=== PATIENT | female | born 1990 | race Caucasian/White ===

== ENCOUNTER 2018-12-14 18:10 | Emergency (ER) | payer OTHER ==
[2018-12-14 18:17] VITALS: BP 127/80; TEMP 97.9
[2018-12-14] MEDS ORDERED: SODIUM CHLORIDE 0.9% 1,000 ML IV STA (18:36)
[2018-12-14] MEDS ORDERED: diphenhydrAMINE 50 MG/ML 1 ML VIAL IM STA (18:37)
[2018-12-14] MEDS ORDERED: LORazepam 2 MG/ML INJ IM STA (18:37)
--- NOTE | 2018-12-14 18:46 | ED ---
Abdominal Pain HPI - General Chief Complaint: Abdominal Pain Stated Complaint: Constipation Time Seen by Provider: 12/14/18 18:20 Source: family Mode of arrival: ambulatory Limitations: no limitations, altered mental status - History of Present Illness Initial Comments: 28-year-old female patient who is severely mentally impaired presents to the emergency department today with parent for evaluation of constipation. She reports that she has not had a bowel movement in the last 2 weeks. Parent states that she has had decreased food and fluid intake, she is only able to get her to drink small sips of water. She denies any fevers or chills. States that she seems uncomfortable and keeps holding her buttocks. Parent states that she does have history of holding her stool. Patient denies any recent rash , fever, chills, shortness breath, vomiting, or diarrhea. - Related Data Home Medications Medication Instructions Recorded Confirmed Ciprofloxacin HCl [Cipro] 500 mg PO BID 12/14/18 12/14/18 Citric Magnesium 8 oz PO ONCE PRN 12/14/18 12/14/18 Glycerin Adult Suppository 1 each RECTAL ONCE PRN 12/14/18 12/14/18 l-Norgest/E.estradiol-E.estrad 1 tab PO DAILY 12/14/18 12/14/18 [Seasonique 0.15-0.03-0.01 Tab] risperiDONE [RisperDAL] 0.5 mg PO DAILY PRN 12/14/18 12/14/18 Allergies Allergy/AdvReac Type Severity Reaction Status Date / Time No Known Allergies Allergy Verified 12/14/18 18:30 Review of Systems ROS Statement: Those systems with pertinent positive or pertinent negative responses have been documented in the HPI. ROS Other: All systems not noted in ROS Statement are negative. Past Medical History Additional Past Medical History / Comment(s): SEVERELY MENTALLY IMPAIRED. History of Any Multi-Drug Resistant Organisms: None Reported Past Surgical History: No Surgical Hx Reported Past Psychological History: No Psychological Hx Reported Smoking Status: Never smoker Past Alcohol Use History: None Reported Past Drug Use History: None Reported General Exam Limitations: no limitations, altered mental status General appearance: alert, in no apparent distress, other (This is a well- developed, well-nourished adult female patient in no acute distress. Vital signs upon presentation are temperature 97.9F, pulse 137, respirations 18, blood pressure 127/80, pulse ox 97% on room air.) Eye exam: Present: normal appearance, PERRL, EOMI. Absent: scleral icterus, conjunctival injection, periorbital swelling ENT exam: Present: normal exam, normal oropharynx, mucous membranes moist Respiratory exam: Present: normal lung sounds bilaterally. Absent: respiratory distress, wheezes, rales, rhonchi, stridor Cardiovascular Exam: Present: regular rate, normal rhythm, normal heart sounds. Absent: systolic murmur, diastolic murmur, rubs, gallop, clicks Neurological exam: Present: alert, CN II-XII intact, other Psychiatric exam: Present: normal affect, normal mood Skin exam: Present: warm, dry, intact, normal color. Absent: rash Course Vital Signs 12/14/18 12/14/18 18:13 23:16 Temperature 97.9 F Pulse Rate 137 H 108 H Respiratory 18 20 Rate Blood Pressure 127/80 O2 Sat by Pulse 97 97 Oximetry Medical Decision Making - Medical Decision Making 28-year-old female patient presents to the emergency department today for evaluation of constipation. Patient is severely mentally impaired and is nonverbal. Mother reports it has been 2 weeks and she had a bowel movement. States that she occasionally holds her butt like it hurts. States she has also had decreased appetite. Physical exam is unremarkable. Abdomen is soft and nontender. KUB x-ray of the abdomen showed overall nonobstructive bowel gas pattern. Sedation was required to perform testing, she is given Ativan and Benadryl which seemed to help. Labs reviewed and did reveal elevated white blood cell count which is felt to be stress leukocytosis. Liver enzymes are mildly elevated. I did perform rectal exam, there is no fecal impaction. Patient did get 2 enemas here in the emergency department, she did have small output on the last one. We'll give a bottle of magnesium citrate to take home. They're instructed to follow up with the primary care physician for recheck as soon as possible. Return immediately for any new, worsening, or concerning symptoms. - Lab Data Result diagrams: 12/14/18 19:50 12/14/18 19:50 Lab Results 12/14/18 12/14/18 12/14/18 Range/Units 19:50 19:50 19:50 WBC 15.6 H (3.8-10.6) k/uL RBC 5.65 H (3.80-5.40) m/uL Hgb 15.9 (11.4-16.0) gm/dL Hct 49.3 H (34.0-46.0) % MCV 87.2 (80.0-100.0) fL MCH 28.2 (25.0-35.0) pg MCHC 32.3 (31.0-37.0) g/dL RDW 12.6 (11.5-15.5) % Plt Count 328 (150-450) k/uL Neutrophils % 80 % Lymphocytes % 14 % Monocytes % 3 % Eosinophils % 1 % Basophils % 1 % Neutrophils # 12.5 H (1.3-7.7) k/uL Lymphocytes # 2.2 (1.0-4.8) k/uL Monocytes # 0.5 (0-1.0) k/uL Eosinophils # 0.2 (0-0.7) k/uL Basophils # 0.1 (0-0.2) k/uL Sodium 140 (137-145) mmol/L Potassium 4.7 (3.5-5.1) mmol/L Chloride 101 (98-107) mmol/L Carbon Dioxide 24 (22-30) mmol/L Anion Gap 15 mmol/L BUN 15 (7-17) mg/dL Creatinine 1.11 H (0.52-1.04) mg/dL Est GFR (CKD-EPI)AfAm 80 (>60 ml/min/1.73 sqM) Est GFR (CKD-EPI)NonAf 69 (>60 ml/min/1.73 sqM) Glucose 211 H (74-99) mg/dL Calcium 10.1 (8.4-10.2) mg/dL Total Bilirubin 0.8 (0.2-1.3) mg/dL AST 181 H (14-36) U/L ALT 353 H (9-52) U/L Alkaline Phosphatase 98 (38-126) U/L Total Protein 8.3 H (6.3-8.2) g/dL Albumin 4.9 (3.5-5.0) g/dL Lipase 71 (23-300) U/L Urine Color Yellow Urine Appearance Cloudy H (Clear) Urine pH 6.0 (5.0-8.0) Ur Specific Loiza 1.020 (1.001-1.035) Urine Protein 1+ H (Negative) Urine Glucose (UA) Negative (Negative) Urine Ketones 2+ H (Negative) Urine Blood Trace H (Negative) Urine Nitrite Negative (Negative) Urine Bilirubin 1+ H (Negative) Urine Urobilinogen 2.0 (<2.0) mg/dL Ur Leukocyte Esterase Negative (Negative) Urine RBC 3 (0-5) /hpf Urine WBC 5 (0-5) /hpf Urine Bacteria Rare H (None) /hpf Hyaline Casts 46 H (0-2) /lpf Urine Mucus Many H (None) /hpf - Radiology Data Radiology results: report reviewed, image reviewed KUB x-ray of the abdomen was performed. Report was reviewed in its entirety. Impression by Dr. Greene shows overall nonobstructive bowel gas pattern. Nonacute abdomen. Disposition Clinical Impression: Constipation, Dehydration, Elevated liver enzymes Disposition: HOME SELF-CARE Condition: Good Instructions: Constipation (ED), Dehydration (ED) Additional Instructions: Increase fluids. Follow-up with the primary care physician for recheck in 1-2 days. Return immediately for any new, worsening, or concerning symptoms. Is patient prescribed a controlled substance at d/c from ED?: No Referrals: Stevie Aguilar MD [Primary Care Provider] - 1-2 days Time of Disposition: 23:06
[2018-12-14 20:06] LABS: Basophils # (A) 0.1 k/uL (0-0.2); Basophils % (A) 1 %; Eosinophils # (A) 0.2 k/uL (0-0.7); Eosinophils % (A) 1 %; HCT 49.3 % (34.0-46.0); HGB 15.9 gm/dL (11.4-16.0); Lymphocytes # (A) 2.2 k/uL (1.0-4.8); Lymphocytes % (A) 14 %; MCH 28.2 pg (25.0-35.0); MCHC 32.3 g/dL (31.0-37.0); MCV 87.2 fL (80.0-100.0); Mean Platelet Volume 8.5; Monocytes # (A) 0.5 k/uL (0-1.0); Monocytes % (A) 3 %; Neutrophils # (A) 12.5 k/uL (1.3-7.7); Neutrophils % (A) 80 %; Platelet Count 328 k/uL (150-450); RBC 5.65 m/uL (3.80-5.40); RDW 12.6 % (11.5-15.5); WBC 15.6 k/uL (3.8-10.6)
[2018-12-14 20:10] LABS: Appearance,Urine Cloudy (Clear); Bacteria,Urine Rare /hpf; Bilirubin,Urine 1+ (Negative); Blood,Urine Trace (Negative); Color,Urine Yellow; Glucose,Urine (UA) Negative (Negative); Hyaline Casts,Urine 46 /lpf (0-2); Ketones,Urine 2+ (Negative); Leukocyte Esterase,Urine Negative (Negative); Mucus,Urine Many /hpf; Nitrite,Urine Negative (Negative); Protein,Urine 1+ (Negative); RBC,Urine 3 /hpf (0-5); WBC,Urine 5 /hpf (0-5)
--- NOTE | 2018-12-14 20:10 | XR ---
EXAMINATION TYPE: XR KUB DATE OF EXAM: 12/14/2018 COMPARISON: NONE HISTORY: Abdominal pain TECHNIQUE: 2 views FINDINGS: Bowel gas pattern is normal. There is no sign of intestinal obstruction or pneumoperitoneum . There are no pathologic calcifications over the kidneys. Lung bases are clear. There is mild lumbar levoscoliosis. IMPRESSION: Nonacute abdomen.
[2018-12-14 20:19] LABS: Albumin 4.9 g/dL (3.5-5.0); Calcium 10.1 mg/dL (8.4-10.2); Potassium 4.7 mmol/L (3.5-5.1); Total Bilirubin 0.8 mg/dL (0.2-1.3); Total Protein 8.3 g/dL (6.3-8.2)
[2018-12-14] MEDS ORDERED: MAGNESIUM CITRATE 296 ML BOTTLE PO ONE (23:06)
[2018-12-14 23:17] VITALS: PULSE 108; RESP 20
== END 2018-12-14 23:23 | disposition home or self-care (01) ==
LOC: EC 18:10
DX: K59.00 Constipation, unspecified (principal); E86.0 Dehydration; R74.8 Abnormal levels of other serum enzymes; F99 Mental disorder, not otherwise specified; Z79.3 Long term (current) use of hormonal contraceptives
CPT/HCPCS: 36415; 80053; 83690; 85025; 81001; 74018; 99284; 96360; 96372 ×2; J2060; J1200

== ENCOUNTER → 2019-05-26 | Outpatient (CLI) | payer OTHER ==
--- NOTE | 2019-05-26 16:25 | XR ---
EXAMINATION TYPE: XR chest 2V DATE OF EXAM: 05/26/2019 COMPARISON: NONE HISTORY: Preop TECHNIQUE: Frontal and lateral views of the chest are obtained. FINDINGS: There is no focal air space opacity, pleural effusion, or pneumothorax seen. The cardiac silhouette size is accentuated possibly due to rotation, exam is. The osseous structures are intact . IMPRESSION: Rotated exam. Expiratory film is described. Heart may be enlarged.
== END | disposition home or self-care (01) ==
LOC: EEVIPCON 11:02 → RADXRMAIN 11:02
PROVIDERS: ATTEND Family Medicine
DX: Z01.818 Encounter for other preprocedural examination (principal)
CPT/HCPCS: 71046

== ENCOUNTER → 2019-05-26 | Outpatient (CLI) | payer OTHER ==
[2019-05-26 12:22] LABS: Basophils # (A) 0.1 k/uL (0-0.2); Basophils % (A) 1 %; Eosinophils # (A) 0.2 k/uL (0-0.7); Eosinophils % (A) 2 %; HCT 44.6 % (34.0-46.0); HGB 14.5 gm/dL (11.4-16.0); Lymphocytes # (A) 2.9 k/uL (1.0-4.8); Lymphocytes % (A) 25 %; MCH 28.3 pg (25.0-35.0); MCHC 32.5 g/dL (31.0-37.0); MCV 86.9 fL (80.0-100.0); Mean Platelet Volume 8.7; Monocytes # (A) 0.6 k/uL (0-1.0); Monocytes % (A) 6 %; Neutrophils # (A) 7.3 k/uL (1.3-7.7); Neutrophils % (A) 65 %; Platelet Count 279 k/uL (150-450); RBC 5.13 m/uL (3.80-5.40); RDW 12.9 % (11.5-15.5); WBC 11.3 k/uL (3.8-10.6)
[2019-05-26 12:28] LABS: INR 0.9 (<1.2); Prothrombin Time 9.8 sec (9.0-12.0)
[2019-05-26 12:35] LABS: ALT 22 U/L (9-52); AST 26 U/L (14-36); African American GFR (CKD) >90 (>60 ml/min/1.73 sqM); Albumin 4.6 g/dL (3.5-5.0); Alkaline Phosphatase 74 U/L (38-126); Anion Gap 10 mmol/L; Blood Urea Nitrogen 10 mg/dL (7-17); Calcium 9.8 mg/dL (8.4-10.2); Carbon Dioxide 28 mmol/L (22-30); Chloride 103 mmol/L (98-107); Glucose 98 mg/dL (74-99); Potassium 4.2 mmol/L (3.5-5.1); Sodium 141 mmol/L (137-145); Total Bilirubin 0.5 mg/dL (0.2-1.3); Total Protein 7.6 g/dL (6.3-8.2)
== END ==
LOC: LABPAT 11:22
PROVIDERS: ATTEND Family Medicine
DX: Z01.812 Encounter for preprocedural laboratory examination (principal)
CPT/HCPCS: 36415; 80053; 85025; 85610

== ENCOUNTER 2019-06-09 06:37 | Day surgery (SDC) | payer OTHER ==
[2019-06-07 11:35] VITALS: BMI 39.1
--- NOTE | 2019-06-08 07:55 | P.HPOB ---
History of Present Illness H&P Date: 06/08/19 Chief Complaint: Pap smear/Exam under anesthesia This patient is a 29 year old female who is presenting for a dental procedure under anesthesia and also I have been asked to do a gynecologic exam with a pap smear. 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 She is for the most part not cooperative with examinations and is combative. Her mother (guardian/power of workers compensation attorney) has arranged for her to have a dental exam under anesthesia. She has asked me to do a pelvic examination and pap smear at the time of this so that Renetta does not need to have two separate procedures. Her past gynecologic history is unremarkable. Her mother indicates she has never been sexually active and has had no previous exam. Past Medical History Additional Past Medical History / Comment(s): SEVERELY MENTALLY IMPAIRED, NON- VERBAL. History of Any Multi-Drug Resistant Organisms: None Reported Past Surgical History: No Surgical Hx Reported Additional Past Surgical History / Comment(s): EXC WISDOM TEETH Past Anesthesia/Blood Transfusion Reactions: No Reported Reaction Smoking Status: Never smoker Past Alcohol Use History: None Reported Past Drug Use History: None Reported - Past Family History Mother Family Medical History: No Reported History Medications and Allergies Home Medications Medication Instructions Recorded Confirmed Type risperiDONE [RisperDAL] 0.5 mg PO DAILY PRN 12/14/18 06/07/19 History Allergies Allergy/AdvReac Type Severity Reaction Status Date / Time No Known Allergies Allergy Verified 06/07/19 11:12 Assessment and Plan Assessment: This is a 29 yr female with severe mental impairment who is having a dental procedure done and her guardian is requesting a gynecologic exam and pap smear under anesthesia. Plan is pelvic exam and pap smear. I did discuss this with her guardian/power of workers compensation attorney (mom) and she understands that she is low risk of an abnormality since she has not been sexually active, but certainly it is reasonable to do a pap and exam at this time. (1) Mental impairment Status: Acute Code(s): F79 - UNSPECIFIED INTELLECTUAL DISABILITIES SNOMED Code(s): 06378821 (2) Encounter for routine gynecological examination Status: Acute Code(s): Z01.419 - ENCNTR FOR SENIOR SOFTWARE DEVELOPMENT ENGINEER EXAM (GENERAL) (ROUTINE) W/O ABN FINDINGS SNOMED Code(s): 135841973
[~2019-06-09 06:37] MED LIST: DEXAMETHASONE SOD PHOSPHATE 10 MG/ML 1 ML VIAL IV ONE; HYDROmorphone 0.5 MG/0.5 ML SYRINGE IVP PRN; LACTATED RINGERS 1,000 ML IV SCH; MIDAZOLAM 2 MG/2 ML VIAL IV PRN; ONDANSETRON 4 MG/2 ML VIAL IVP ONE; SCOPOLAMINE 1.5MG/72HR PATCH TRANSDERM ONE; ceFAZolin IN SWFI 2 GM/20 ML SYRINGE IVP ONE; metroNIDAZOLE-NS PMX 500 MG in SALINE 1 100ML.BAG IVPB ONE
[2019-06-09 06:56] VITALS: TEMP 97.9
[2019-06-09] MEDS ORDERED: LIDOCAINE 1% 20 ML VIAL (10MG/ML) FOR IV START INTRADERMA ONE (07:15)
[2019-06-09] MEDS ORDERED: KETOROLAC 30 MG/ML 1 ML VIAL ONE (07:46)
[2019-06-09] MEDS ORDERED: PROPOFOL 10 MG/ML 20 ML VIAL IV ONE (07:46)
[2019-06-09] MEDS ORDERED: MIDAZOLAM 2 MG/2 ML VIAL ONE (07:46)
[2019-06-09] MEDS ORDERED: SUCCINYLCHOLINE CHLORIDE 100 MG/5 ML SYR IV ONE (07:46)
[2019-06-09] MEDS ORDERED: LIDOCAINE 1% INJ 10MG/ML (20 ML MDV) ONE (07:46)
[2019-06-09] MEDS ORDERED: fentaNYL (PF) 50 MCG/ML 2 ML AMP ONE (07:46)
--- NOTE | 2019-06-09 08:15 | P.PCN ---
Date of Procedure: 06/09/19 Preoperative Diagnosis: Mental impairment for exam under anesthesia and Pap smear Postoperative Diagnosis: Same Procedure(s) Performed: Pap smear and bimanual pelvic exam under anesthesia Anesthesia: VERONA Surgeon: Prosper Lang Estimated Blood Loss (ml): 0 Pathology: other (Pap smear of the cervix) Condition: stable Indications for Procedure: Please see dictated H&P on this patient's admission. Brief summary of pleasant 29-year-old 0 para 0 female who was having a dental procedure under ane sthesia secondary to severe mental impairment. I was asked by the patient's guardian and mother to do a Pap smear and pelvic exam all she was under anesthesia. Procrit consent is obtained from the guardian. Operative Findings: Patient normal appearing external female genitalia. Cervix appeared small and nulliparous and normal. Uterus is midposition and nonenlarged. Description of Procedure: Patient subsequently undergoes general anesthesia. With adequate anesthesia she is subsequently placed in dorsal lithotomy position. Examination perineum is done. Speculum was placed in the vagina and the cervix is visualized. Pap smear is obtained. Curetting grossly appears normal. Bimanual exam is then done. Speculum was removed and patient will proceed now with her dental procedure.
[2019-06-09] MEDS ORDERED: LIDOCAINE 2%-EPI 1:200,000 20 ML VIAL SQ ONE (09:38)
[2019-06-09 10:54] VITALS: PULSE 97
[2019-06-09 11:03] VITALS: BP 135/79; RESP 24
--- NOTE | 2019-06-09 11:04 | P.GSCN ---
History of Present Illness Consult date: 06/09/19 Reason for Consult: -FMX -Perio prophy -Initial exam -#14 OL Resin -#19 B Resin -#30 O resin, all with glass ionomer, (#19 had theraCal and was deep), Filteck Bulk shade A2. -#4 Simple extraction. Post op instructions given to patient Toradol was given IV. Thank you Past Medical History Additional Past Medical History / Comment(s): SEVERELY MENTALLY IMPAIRED, NON- VERBAL. History of Any Multi-Drug Resistant Organisms: None Reported Past Surgical History: No Surgical Hx Reported Additional Past Surgical History / Comment(s): EXC WISDOM TEETH Past Anesthesia/Blood Transfusion Reactions: No Reported Reaction Smoking Status: Never smoker Past Alcohol Use History: None Reported Past Drug Use History: None Reported - Past Family History Mother Family Medical History: No Reported History Medications and Allergies Home Medications Medication Instructions Recorded Confirmed Type risperiDONE [RisperDAL] 0.5 mg PO DAILY PRN 12/14/18 06/09/19 History Allergies Allergy/AdvReac Type Severity Reaction Status Date / Time No Known Allergies Allergy Verified 06/09/19 06:48 Surgical - Exam Vital Signs Temp Pulse Resp BP Pulse Ox 97.9 F 84 18 158/89 98 06/09/19 06:54 06/09/19 06:54 06/09/19 06:54 06/09/19 06:54 06/09/19 06:54
== END 2019-06-09 11:13 | disposition home or self-care (01) ==
LOC: OR 06:37
PROVIDERS: ATTEND Dentist
DX: Z01.419 Encounter for gynecological examination (general) (routine) without abnormal findings (principal); R29.90 Unspecified symptoms and signs involving the nervous system; F72 Severe intellectual disabilities; F80.89 Other developmental disorders of speech and language; Z79.899 Other long term (current) drug therapy
CPT/HCPCS: 57410; 84703; J2250; J1100; J2405; J2001; J3010; J1885; J0330; J2704

== ENCOUNTER → 2020-09-27 | Day surgery (SDC) | payer OTHER ==
[2020-09-23 09:02] VITALS: BMI 43.9
[~2020-09-27] MED LIST changes: +KETAMINE 10 MG/ML 20 ML VIAL ONE; +LIDOCAINE 1% (10MG/ML) FOR IV START INTRADERMA PRN; +LIDOCAINE 1% INJ 10MG/ML (20 ML MDV) ONE; +MIDAZOLAM 2 MG/2 ML VIAL ONE; +PROPOFOL 10 MG/ML 20 ML VIAL IV ONE; -SCOPOLAMINE 1.5MG/72HR PATCH TRANSDERM ONE; +SUCCINYLCHOLINE CHLORIDE 100 MG/5 ML SYR IV ONE; -ceFAZolin IN SWFI 2 GM/20 ML SYRINGE IVP ONE; +fentaNYL (PF) 50 MCG/ML 2 ML AMP ONE
[2020-09-27 09:49] VITALS: TEMP 97
[2020-09-27 10:12] VITALS: RESP 17
[2020-09-27 10:24] VITALS: BP 148/90; PULSE 71
--- NOTE | 2020-10-03 14:00 | P.GSCN ---
History of Present Illness Consult date: 09/27/20 Reason for Consult: Periodic exam 4 BWS (8 PA's, as bws are impossible with intubation Perio prophy #5 Core with Filteck bulk shade A3, glass ionomer #11 F #30 B #19 B #20 DB All resin with glass ionomer, teeth #'s 5 and 11 were deep;y decayed. Pt's mother informed. No need for post op antibiotics or pain medication except for OTC Motrin. Past Medical History Additional Past Medical History / Comment(s): SEVERELY MENTALLY IMPAIRED. History of Any Multi-Drug Resistant Organisms: None Reported Past Surgical History: No Surgical Hx Reported Additional Past Surgical History / Comment(s): NUMEROUS DENTAL PROCEDURES WITH ANESTHESIA Past Anesthesia/Blood Transfusion Reactions: No Reported Reaction Smoking Status: Never smoker - Past Family History Mother Family Medical History: No Reported History Medications and Allergies Home Medications Medication Instructions Recorded Confirmed Type l-Norgest/E.estradiol-E.estrad 1 each PO DAILY 09/23/20 09/27/20 History [Seasonique 0.15-0.03-0.01 Tab] Allergies Allergy/AdvReac Type Severity Reaction Status Date / Time No Known Allergies Allergy Verified 09/27/20 06:42 Surgical - Exam Vital Signs Temp Pulse Resp BP Pulse Ox 97.4 F L 88 16 145/83 100 09/27/20 06:42 09/27/20 06:42 09/27/20 06:42 09/27/20 06:42 09/27/20 06:42
== END ==
LOC: OR 06:42
PROVIDERS: ATTEND Dentist
DX: Z01.21 Encounter for dental examination and cleaning with abnormal findings (principal); K02.9 Dental caries, unspecified; F84.0 Autistic disorder; F79 Unspecified intellectual disabilities; Z79.3 Long term (current) use of hormonal contraceptives; Z79.899 Other long term (current) drug therapy; Z86.19 Personal history of other infectious and parasitic diseases; Z87.19 Personal history of other diseases of the digestive system; Z86.39 Personal history of other endocrine, nutritional and metabolic disease; Z98.890 Other specified postprocedural states; Z83.79 Family history of other diseases of the digestive system
CPT/HCPCS: 84703; 41899; J2250; J1100; J0690; J2405; J2001; J3010; J0330; J2704

== ENCOUNTER 2023-03-01 06:26 | Day surgery (SDC) | payer BC, OTHER ==
[~2023-03-01 06:26] MED LIST changes: +ACETAMINOPHEN TAB 500 MG TAB PO PRN; -DEXAMETHASONE SOD PHOSPHATE 10 MG/ML 1 ML VIAL IV ONE; +HEPARIN SODIUM,PORCINE/PF 5,000 UNIT/0.5 ML SYRINGE SQ PRN; -HYDROmorphone 0.5 MG/0.5 ML SYRINGE IVP PRN; -KETAMINE 10 MG/ML 20 ML VIAL ONE; -LACTATED RINGERS 1,000 ML IV SCH; -LIDOCAINE 1% (10MG/ML) FOR IV START INTRADERMA PRN; -LIDOCAINE 1% INJ 10MG/ML (20 ML MDV) ONE; -MIDAZOLAM 2 MG/2 ML VIAL IV PRN; -MIDAZOLAM 2 MG/2 ML VIAL ONE; -ONDANSETRON 4 MG/2 ML VIAL IVP ONE; -PROPOFOL 10 MG/ML 20 ML VIAL IV ONE; -SUCCINYLCHOLINE CHLORIDE 100 MG/5 ML SYR IV ONE; -fentaNYL (PF) 50 MCG/ML 2 ML AMP ONE; -metroNIDAZOLE-NS PMX 500 MG in SALINE 1 100ML.BAG IVPB ONE
[2023-03-01] MEDS ORDERED: LACTATED RINGERS 1,000 ML IV SCH (06:50)
[2023-03-01] MEDS ORDERED: ONDANSETRON 4 MG/2 ML VIAL IVP ONE (06:50)
[2023-03-01] MEDS ORDERED: DEXAMETHASONE SOD PHOSPHATE 4 MG/ML 1 ML VIAL IV ONE (06:50)
[2023-03-01] MEDS ORDERED: MIDAZOLAM 2 MG/2 ML VIAL IV PRN (06:50)
[2023-03-01] MEDS ORDERED: SCOPOLAMINE 1 MG/72 HR PATCH TRANSDERM ONE (06:50)
[2023-03-01] MEDS ORDERED: HYDROmorphone 0.5 MG/0.5 ML SYRINGE IVP PRN (07:00)
[2023-03-01] MEDS ORDERED: ACETAMINOPHEN TAB 500 MG TAB ONE (07:12)
[2023-03-01] MEDS ORDERED: HEPARIN SODIUM,PORCINE/PF 5,000 UNIT/0.5 ML SYRINGE SQ ONE (07:12)
--- NOTE | 2023-03-01 07:20 | P.GSHP ---
History of Present Illness H&P Date: 03/01/23 Chief Complaint: Chronic cholecystitis 32-year-old female with history of developmental delay has had complaints of right upper quadrant pain and soreness. Workup showed gallstones with a thickened gallbladder wall. Here today for elective cholecystectomy. She has had several more attacks and she was seen in the office one month ago. Past Medical History Past Medical History: GERD/Reflux Additional Past Medical History / Comment(s): COGNITIVELY IMPAIRED/NONVERBAL/AUTISM, gallbladder stones and severe thickening of gallbladder wall/abdominal pain, constipation. History of Any Multi-Drug Resistant Organisms: None Reported Past Surgical History: No Surgical Hx Reported Additional Past Surgical History / Comment(s): NUMEROUS DENTAL PROCEDURES WITH ANESTHESIA Past Anesthesia/Blood Transfusion Reactions: Postoperative Nausea & Vomiting (PONV) Additional Past Anesthesia/Blood Transfusion Reaction / Comment(s): PATIENT WAKES FEARFUL/TRIES TO GET OOB, COMBATIVE. Last surgery/pt woke and vomited. Pt has never had a blood transfusion. Smoking Status: Never smoker - Past Family History Mother Family Medical History: No Reported History Father Family Medical History: Blood Disorder Additional Family Medical History / Comment(s): Hemophilia. Medications and Allergies Home Medications Medication Instructions Recorded Confirmed Type l-Norgest/E.estradiol-E.estrad 1 each PO QAM 09/23/20 03/01/23 History [Seasonique 0.15-0.03-0.01 Tab] Allergies Allergy/AdvReac Type Severity Reaction Status Date / Time No Known Allergies Allergy Verified 03/01/23 06:52 Surgical - Exam Vital Signs Temp Pulse Resp BP Pulse Ox 98.6 F 75 16 149/74 100 03/01/23 07:05 03/01/23 07:05 03/01/23 07:05 03/01/23 07:05 03/01/23 07:05 Physical exam: General: Well-developed, well-nourished HEENT: Normocephalic, sclerae nonicteric Abdomen: Nontender, nondistended Extremities: No edema Neuro: Alert and oriented Assessment and Plan (1) Chronic cholecystitis Narrative/Plan: Will proceed with laparoscopic, possible open cholecystectomy at this time. Risks of bleeding, infection, bile leak, bile duct injury, retained common bile duct stone, trocar injury, conversion to an open procedure, hernia, anesthesia related complications were reviewed. The patient understands and wishes to proceed. Current Visit: Yes Status: Acute Code(s): K81.1 - CHRONIC CHOLECYSTITIS SNOMED Code(s): 11225520
[2023-03-01] MEDS ORDERED: fentaNYL (PF) 50 MCG/ML 2 ML AMP ONE (07:40)
[2023-03-01] MEDS ORDERED: GLYCOPYRROLATE 0.2 MG/ML 2 ML VIAL ONE (07:40)
[2023-03-01] MEDS ORDERED: MIDAZOLAM 2 MG/2 ML VIAL ONE (07:40)
[2023-03-01] MEDS ORDERED: DEXAMETHASONE SOD PHOSPHATE 4 MG/ML 1 ML VIAL ONE (07:40)
[2023-03-01] MEDS ORDERED: ONDANSETRON 4 MG/2 ML VIAL ONE (07:40)
[2023-03-01] MEDS ORDERED: ROCURONIUM 10 MG/ML (5 ML VIAL) IV ONE (07:40)
[2023-03-01] MEDS ORDERED: HYDROmorphone (PF) 1 MG/ML ONE (07:40)
[2023-03-01] MEDS ORDERED: SUCCINYLCHOLINE CHLORIDE 200 MG/10 ML VIAL IV ONE (07:40)
[2023-03-01] MEDS ORDERED: PROPOFOL 10 MG/ML 20 ML VIAL IV ONE (07:40)
[2023-03-01] MEDS ORDERED: LIDOCAINE 2% INJ 20 MG/ML (2 ML VIAL) ONE (07:40)
[2023-03-01] MEDS ORDERED: diphenhydrAMINE 50 MG/ML 1 ML VIAL ONE (07:40)
[2023-03-01] MEDS ORDERED: NEOSTIGMINE 1 MG/ML 10 ML VIAL ONE (07:40)
[2023-03-01] MEDS ORDERED: BUPIVACAIN-EPI 0.25%-1:200,000 30 ML VIAL SQ ONE (08:17)
[2023-03-01] MEDS ORDERED: LACTATED RINGERS 1,000 ML IV ONE (08:35)
[2023-03-01] MEDS ORDERED: ACETAMINOPHEN ORAL SUSP 160 MG/5 ML CUP PO PRN (09:21)
[2023-03-01 09:25] VITALS: TEMP 97.3
[2023-03-01 09:26] VITALS: RESP 16
--- NOTE | 2023-03-01 09:26 | P.OP ---
Date of Procedure: 03/01/23 Procedure(s) Performed: PREOPERATIVE DIAGNOSIS: Chronic cholecystitis POSTOPERATIVE DIAGNOSIS: Same PROCEDURE: Laparoscopic cholecystectomy SURGEON: Adina EBL: 75 mL ANESTHESIA: Gen. COMPLICATIONS: None OPERATIVE PROCEDURE: The patient was brought and placed on the operating room table in the supine position. The patient was placed under general anesthesia at that time. The abdomen was prepped and draped in the usual sterile fashion. A small vertical infraumbilical incision was made. The fascia was grasped with the Jennifer forceps. The fascia was retracted anteriorly. The Veress needle was advanced into the peritoneal cavity. The saline drop test was normal. Insufflation took place up to 15 mmHg. A 5 mm optical trocar was advanced and the peritoneal cavity. 2 additional 5 mm trochars were placed in the right upper quadrant under direct visualization. A 12 mm trocar was advanced into the epigastric incision site. The gallbladder was chronically inflamed with a thickened wall throughout. Multiple large stones were palpated in the gallbladder. The gallbladder was retracted superiorly and laterally. The peritoneum overlying the infundibulum was bluntly dissected. The patient's cystic duct was visualized. The junction between the cystic duct common and hepatic duct was identified. The critical view of safety was achieved after blunt dissection. The cystic duct was then divided after placement of a 2-0 Ethibond stitch and a 12 mm clip on the patient's side. An additional 12 mm clip on the specimen side. The stitch was tied down using a tie knot device. The cystic artery was identified and clipped as well. A small vessel was seen along the gallbladder fossa and clipped as well. The gallbladder was then removed from the liver bed using electrocautery. Oozing along the gallbladder fossa is what accounted for the 75 mL blood loss. There was significant chronic inflammatory change and it was difficult at times to visualize the junction between the wall of the gallbladder and the fossa. Electrocautery controlled all bleeding sites. The gallbladder was then removed from the epigastric trocar site with an Endo Catch bag. The gallbladder fossa was irrigated with saline. There was no evidence of any bleeding or biliary drainage seen. The fascia at the 12 millimeter site was closed using a Gordo-Casie 0 Vicryl stitch. The trochars were then removed. The skin at all 4 sites was closed using a 4-0 Monocryl stitch. Skin glue was utilized on the incision sites. At the end of this procedure the sponge and needle counts were correct. DISPOSITION: Stable to the recovery room
[2023-03-01] MEDS ORDERED: ACET/COD 120MG/12MG LIQ 5ML CUP PO ONE (10:15)
[2023-03-01 10:56] VITALS: BP 132/86; PULSE 81
== END 2023-03-01 11:25 | disposition home or self-care (01) ==
LOC: OR 06:26
PROVIDERS: ATTEND Surgery
DX: K80.10 Calculus of gallbladder with chronic cholecystitis without obstruction (principal); K21.9 Gastro-esophageal reflux disease without esophagitis; F84.0 Autistic disorder; K91.0 Vomiting following gastrointestinal surgery; Z79.899 Other long term (current) drug therapy
CPT/HCPCS: 88304; 84702; 47562; J2250; J0330; J1200; J1100; J2710; J0690; J2405; J3010; J1170; J2704; J1644; J2001

== ENCOUNTER 2023-03-03 23:06 | Emergency (ER) | payer BC, OTHER ==
[2023-03-03 23:14] VITALS: TEMP 98.3
[2023-03-04] MEDS ORDERED: KETOROLAC 15 MG/ML 1 ML VIAL IVP STA (00:02)
--- NOTE | 2023-03-04 00:21 | ED ---
General Adult HPI - General Chief complaint: Recheck/Abnormal Lab/Rx Stated complaint: POST OP PAIN Time Seen by Provider: 03/03/23 23:24 Source: family Mode of arrival: ambulatory - History of Present Illness Initial comments: Patient is a 32-year-old female with autism, nonverbal, presenting with chief complaint of abdominal pain. Patient had cholecystectomy performed on 03/[address] Holden, mother states the patient was doing well but this evening she began holding her abdomen in pain and pacing. She has been giving Motrin and Tylenol for pain control, states that they did have a prescription for Napoleon sent to the pharmacy but she has not picked it up yet. No vomiting. No fever or chills. No difficulty breathing. No diarrhea. - Related Data Home Medications Medication Instructions Recorded Confirmed l-Norgest/E.estradiol-E.estrad 1 each PO QAM 09/23/20 03/01/23 [Seasonique 0.15-0.03-0.01 Tab] Allergies Allergy/AdvReac Type Severity Reaction Status Date / Time No Known Allergies Allergy Verified 03/03/23 23:14 Review of Systems ROS Statement: Those systems with pertinent positive or pertinent negative responses have been documented in the HPI. ROS Other: All systems not noted in ROS Statement are negative. Past Medical History Past Medical History: GERD/Reflux Additional Past Medical History / Comment(s): COGNITIVELY IMPAIRE D/NONVERBAL/AUTISM, gallbladder stones and severe thickening of gallbladder wall/abdominal pain, constipation. History of Any Multi-Drug Resistant Organisms: None Reported Past Surgical History: No Surgical Hx Reported Additional Past Surgical History / Comment(s): NUMEROUS DENTAL PROCEDURES WITH ANESTHESIA Past Anesthesia/Blood Transfusion Reactions: Postoperative Nausea & Vomiting (PONV) Additional Past Anesthesia/Blood Transfusion Reaction / Comment(s): PATIENT WAKES FEARFUL/TRIES TO GET OOB, COMBATIVE. Last surgery/pt woke and vomited. Pt has never had a blood transfusion. Past Psychological History: No Psychological Hx Reported Smoking Status: Never smoker - Past Family History Mother Family Medical History: No Reported History Father Family Medical History: Blood Disorder Additional Family Medical History / Comment(s): Hemophilia. General Exam Limitations: language barrier General appearance: alert, in no apparent distress Head exam: Present: atraumatic, normocephalic, normal inspection Eye exam: Present: normal appearance Neck exam: Present: normal inspection, full ROM Respiratory exam: Present: normal lung sounds bilaterally. Absent: respiratory distress, wheezes, rales, rhonchi, stridor Cardiovascular Exam: Present: regular rate, normal rhythm, normal heart sounds. Absent: systolic murmur, diastolic murmur, rubs, gallop, clicks GI/Abdominal exam: Present: soft. Absent: distended, tenderness, guarding, rebound, rigid Neurological exam: Present: alert, altered (Baseline) Psychiatric exam: Present: normal affect, normal mood Skin exam: Present: warm, dry, intact, normal color. Absent: rash Course Vital Signs 03/03/23 03/04/23 23:12 01:13 Temperature 98.3 F Pulse Rate 73 110 H Respiratory 18 20 Rate Blood Pressure 160/102 130/100 O2 Sat by Pulse 100 99 Oximetry Medical Decision Making - Medical Decision Making Was pt. sent in by a medical professional or institution (, PA, FOOD PRODUCTION WORKER, urgent care, hospital, or senior living...) When possible be specific @ -No Did you speak to anyone other than the patient for history (EMS, parent, family, police, friend...)? What history was obtained from this source @ -Mother Did you review nursing and triage notes (agree or disagree)? Why? @ -I reviewed and agree with nursing and triage notes Were old charts reviewed (outside hosp., previous admission, EMS record, old EKG, old radiological studies, urgent care reports/EKG's, senior living records)? Report findings @ -No old charts were reviewed Differential Diagnosis (chest pain, altered mental status, abdominal pain women, abdominal pain men, vaginal bleeding, weakness, fever, dyspnea, syncope, headache, dizziness, GI bleed, back pain, seizure, CVA, palpatations, mental health, musculoskeletal)? @ -MDM Differential Abdominal Pain Women: Appendicitis, Cholecystitis, diverticulosis, ischemic bowel, pancreatitis, hepatitis, UTI, gastroenteritis, AAA, incarcerated hernia, bowel obstruction, constipation, inflammatory bowel, hepatitis, peptic ulcer disease, splenic infarction, perforated viscus, vulvitis, ovarian torsion, PID, kidney stone, placenta abruption... This is not meant to be an all-inclusive list EKG interpreted by me (3pts min.). @ -As above X-rays interpreted by me (1pt min.). @ -None done CT interpreted by me (1pt min.). @ -None done U/S interpreted by me (1pt. min.). @ -None done What testing was considered but not performed or refused? (CT, X-rays, U/S, labs)? Why? @ -CT was considered, mother stated that she felt comfortable with discharge and monitoring for any worsening symptoms What meds were considered but not given or refused? Why? @ -None Did you discuss the management of the patient with other professionals (professionals i.e. , PA, FOOD PRODUCTION WORKER, lab, RT, psych nurse, social media strategist, blade boner, teacher, hotel security officer, dependency case manager)? Give summary @ -No Was smoking cessation discussed for >3mins.? @ -No Was critical care preformed (if so, how long)? @ -No Were there social determinants of health that impacted care today? How? (Homelessness, low income, unemployed, alcoholism, drug addiction, transportation, low edu. Level, literacy, decrease access to med. care, intermediate, rehab)? @ -No Was there de-escalation of care discussed even if they declined (Discuss DNR or withdrawal of care, Hospice)? DNR status @ -No What co-morbidities impacted this encounter? (DM, HTN, Smoking, COPD, CAD, Cancer, CVA, ARF, Chemo, Hep., AIDS, mental health diagnosis, sleep apnea, morbid obesity)? @ -Autism Was patient admitted / discharged? Hospital course, mention meds given and route, prescriptions, significant lab abnormalities, going to OR and other pertinent info. @ -Patient is a 32-year-old female with history of cholecystectomy performed on 02/[address] Holden. Mother states that she was holding her side in pain today. She has had no vomiting or fever. She has been taking Motrin and Tylenol at home, they have not picked up the pain medications and to the pharmacy at the time of discharge postoperatively. On physical examination abdomen is soft, nontender, nondistended. Lab work shows no leukocytosis or anemia and CMP is essentially unremarkable. Mother states that the patient's symptoms seem to have improved after administration of Toradol. I offered computed tomography scan, shared decision making was used and mother felt most comfortable with discharge home at this time and returning with any worsening or persisting symptoms. I believe this is reasonable. Follow-up with PCP. Report back to ER with any new or worsening symptoms. Discussed return parameters and answered all questions. Patient conveyed verbal understanding and agreed to the plan. I discussed this case in detail with my attending Dr. Solomon Undiagnosed new problem with uncertain prognosis? @ -No Drug Therapy requiring intensive monitoring for toxicity (Heparin, Nitro, Insulin, Cardizem)? @ -No Were any procedures done? @ -No Diagnosis/symptom? @ -Postoperative abdominal pain Acute, or Chronic, or Acute on Chronic? @ -Acute Uncomplicated (without systemic symptoms) or Complicated (systemic symptoms)? @ -Uncomplicated Side effects of treatment? @ -No Exacerbation, Progression, or Severe Exacerbation? @ -No Poses a threat to life or bodily function? How? (Chest pain, [place], [place], pneumonia, PE, COPD, DKA, ARF, appy, cholecystitis, CVA, Diverticulitis, Homicidal, Suicidal, threat to staff... and all critical care pts) @ -No - Lab Data Result diagrams: 03/04/23 00:15 03/04/23 00:15 Lab Results 03/04/23 03/04/23 Range/Units 00:15 00:15 WBC 9.8 (3.8-10.6) k/uL RBC 4.73 (3.80-5.40) m/uL Hgb 14.2 (11.4-16.0) gm/dL Hct 41.6 (34.0-46.0) % MCV 87.9 (80.0-100.0) fL MCH 30.0 (25.0-35.0) pg MCHC 34.1 (31.0-37.0) g/dL RDW 12.2 (11.5-15.5) % Plt Count 212 (150-450) k/uL MPV 9.1 Neutrophils % 65 % Lymphocytes % 24 % Monocytes % 6 % Eosinophils % 2 % Basophils % 1 % Neutrophils # 6.3 (1.3-7.7) k/uL Lymphocytes # 2.4 (1.0-4.8) k/uL Monocytes # 0.6 (0-1.0) k/uL Eosinophils # 0.2 (0-0.7) k/uL Basophils # 0.1 (0-0.2) k/uL Sodium 137 (137-145) mmol/L Potassium 4.4 (3.5-5.1) mmol/L Chloride 105 (98-107) mmol/L Carbon Dioxide 25 (22-30) mmol/L Anion Gap 7 mmol/L BUN 14 (7-17) mg/dL Creatinine 0.62 (0.52-1.04) mg/dL Est GFR (CKD-EPI)AfAm >90 (>60 ml/min/1.73 sqM) Est GFR (CKD-EPI)NonAf >90 (>60 ml/min/1.73 sqM) Glucose 104 H (74-99) mg/dL Calcium 9.2 (8.4-10.2) mg/dL Total Bilirubin 0.6 (0.2-1.3) mg/dL AST 31 (14-36) U/L ALT 49 H (4-34) U/L Alkaline Phosphatase 64 (38-126) U/L Total Protein 6.9 (6.3-8.2) g/dL Albumin 4.0 (3.5-5.0) g/dL Amylase 33 (30-110) U/L Lipase 59 (23-300) U/L Disposition Clinical Impression: Postoperative abdominal pain Disposition: HOME SELF-CARE Condition: Fair Instructions (If sedation given, give patient instructions): Abdominal Pain (ED), Laparoscopic Cholecystectomy (DC) Additional Instructions: Follow-up with PCP and surgeon. Report back to ER with any new or worsening symptoms. Is patient prescribed a controlled substance at d/c from ED?: No Referrals: Pj Marcos MD [Primary Care Provider] - 1-2 days Guero Holden MD [Medical Doctor] - 1-2 days Time of Disposition: 01:01
[2023-03-04 00:26] LABS: Basophils # (A) 0.1 k/uL (0-0.2); Basophils % (A) 1 %; Eosinophils # (A) 0.2 k/uL (0-0.7); Eosinophils % (A) 2 %; HCT 41.6 % (34.0-46.0); HGB 14.2 gm/dL (11.4-16.0); Lymphocytes # (A) 2.4 k/uL (1.0-4.8); Lymphocytes % (A) 24 %; MCHC 34.1 g/dL (31.0-37.0); MCV 87.9 fL (80.0-100.0); Mean Platelet Volume 9.1; Monocytes # (A) 0.6 k/uL (0-1.0); Monocytes % (A) 6 %; Neutrophils # (A) 6.3 k/uL (1.3-7.7); Neutrophils % (A) 65 %; Platelet Count 212 k/uL (150-450); RBC 4.73 m/uL (3.80-5.40); RDW 12.2 % (11.5-15.5); WBC 9.8 k/uL (3.8-10.6)
[2023-03-04 00:34] LABS: ALT 49 U/L (4-34); AST 31 U/L (14-36); African American GFR (CKD) >90 (>60 ml/min/1.73 sqM); Alkaline Phosphatase 64 U/L (38-126); Amylase 33 U/L (30-110); Anion Gap 7 mmol/L; Blood Urea Nitrogen 14 mg/dL (7-17); Calcium 9.2 mg/dL (8.4-10.2); Carbon Dioxide 25 mmol/L (22-30); Chloride 105 mmol/L (98-107); Glucose 104 mg/dL (74-99); Lipase 59 U/L (23-300); Non-African American GFR(CKD) >90 (>60 ml/min/1.73 sqM); Potassium 4.4 mmol/L (3.5-5.1); Sodium 137 mmol/L (137-145); Total Bilirubin 0.6 mg/dL (0.2-1.3); Total Protein 6.9 g/dL (6.3-8.2)
[2023-03-04 01:14] VITALS: BP 130/100; PULSE 110; RESP 20
== END 2023-03-04 01:14 | disposition home or self-care (01) ==
LOC: EC 23:06
DX: G89.18 Other acute postprocedural pain (principal); R10.9 Unspecified abdominal pain; Z90.49 Acquired absence of other specified parts of digestive tract
CPT/HCPCS: 99284; 96374; 36415; 80053; 82150; 83690; 85025; J1885

== ENCOUNTER 2023-03-25 19:11 | Emergency (ER) | payer BC, OTHER ==
[2023-03-25 19:29] VITALS: TEMP 98
--- NOTE | 2023-03-25 19:54 | ED ---
Abdominal Pain HPI - General Chief Complaint: Abdominal Pain Stated Complaint: Bowel obstruction Time Seen by Provider: 03/25/23 19:33 Source: family (Mother), RN notes reviewed Mode of arrival: ambulatory Limitations: no limitations - History of Present Illness Initial Comments: Patient is a 33-year-old female brought to the emergency room with her mother in regards to concerns for constipation and abdominal pain. Her mother reports that patient has been battling abdominal pain and constipation for approximately most of the month of February which began after her cholecystectomy on 03/01/2023. With no significant bowel movement since 03/11/2023. Patient is nonverbal autistic who has increased irritation and irritability when she is in pain. Her mother reports that she attempted to treat her constipation with Senokot, Metamucil fiber, a glycerin suppository and a partial fleets enema all without success. Mother denies any episodes of vomiting or changes in dietary intake. In addition to her nonverbal autism and previous cholecystectomy she has a past medical history significant for GERD. - Related Data Home Medications Medication Instructions Recorded Confirmed l-Norgest/E.estradiol-E.estrad 1 each PO QAM 09/23/20 03/01/23 [Seasonique 0.15-0.03-0.01 Tab] Allergies Allergy/AdvReac Type Severity Reaction Status Date / Time No Known Allergies Allergy Verified 03/25/23 19:29 Review of Systems ROS Statement: Those systems with pertinent positive or pertinent negative responses have been documented in the HPI. ROS Other: All systems not noted in ROS Statement are negative. Past Medical History Past Medical History: GERD/Reflux Additional Past Medical History / Comment(s): COGNITIVELY IMPAIRED/NONV ERBAL/AUTISM, gallbladder stones and severe thickening of gallbladder wall/abdominal pain, constipation. History of Any Multi-Drug Resistant Organisms: None Reported Past Surgical History: Cholecystectomy Additional Past Surgical History / Comment(s): NUMEROUS DENTAL PROCEDURES WITH ANESTHESIA Past Anesthesia/Blood Transfusion Reactions: Postoperative Nausea & Vomiting (PONV) Additional Past Anesthesia/Blood Transfusion Reaction / Comment(s): PATIENT WAKES FEARFUL/TRIES TO GET OOB, COMBATIVE. Last surgery/pt woke and vomited. Pt has never had a blood transfusion. Past Psychological History: No Psychological Hx Reported Smoking Status: Never smoker Past Alcohol Use History: None Reported Past Drug Use History: None Reported - Past Family History Mother Family Medical History: No Reported History Father Family Medical History: Blood Disorder Additional Family Medical History / Comment(s): Hemophilia. General Exam - General Exam Comments Initial Comments: GENERAL: No acute distress, well developed, well nourished. HEENT: Normocephalic, atraumatic. Pupils equal, round, reactive to light. Moist mucous membranes. LUNGS: No respiratory distress. Clear to auscultation, no adventitious sounds, no use of accessory muscles. HEART: Regular rate and rhythm without murmur, rub, or gallop. ABDOMEN: Normal bowel sounds. Soft, non-tender, non-distended. No guarding or rebound tenderness. BACK: Normal inspection. EXTREMITIES: No edema. No tenderness. Moves all extremities. NEUROLOGIC: Alert, nonverbal. PSYCHIATRIC: Austic Easily agitated. DERMATOLOGIC: Visualized skin intact, without rashes or lesions noted. Limitations: no limitations Course Vital Signs 03/25/23 03/25/23 19:26 22:10 Temperature 98.0 F Pulse Rate 80 105 H Respiratory 20 16 Rate Blood Pressure 146/89 149/87 O2 Sat by Pulse 100 97 Oximetry Medical Decision Making - Medical Decision Making Was pt. sent in by a medical professional or institution (, PA, BUSINESS DEVELOPMENT EXECUTIVE, urgent care, hospital, or senior care...) When possible be specific @ -No Did you speak to anyone other than the patient for history (EMS, parent, family, police, friend...)? What history was obtained from this source @ -Yes, mother at bedside, patient nonverbal autistic all HPI/history obtained from mother. Did you review nursing and triage notes (agree or disagree)? Why? @ -I reviewed and agree with nursing and triage notes Were old charts reviewed (outside hosp., previous admission, EMS record, old EKG, old radiological studies, urgent care reports/EKG's, senior care records)? Report findings @ -Yes, I reviewed cholecystectomy report from 01/01/2023. An laboratory studies from 03/04/2023 which was completed for abdominal pain emergency room visit. Differential Diagnosis (chest pain, altered mental status, abdominal pain women, abdominal pain men, vaginal bleeding, weakness, fever, dyspnea, syncope, headache, dizziness, GI bleed, back pain, seizure, CVA, palpatations, mental health, musculoskeletal)? @ -Differential Abdominal Pain Women: Appendicitis, Cholecystitis, diverticulosis, ischemic bowel, pancreatitis, hepatitis, UTI, gastroenteritis, AAA, incarcerated hernia, bowel obstruction, constipation, inflammatory bowel, hepatitis, peptic ulcer disease, splenic infarction, perforated viscus, vulvitis, ovarian torsion, PID, kidney stone, placenta abruption, this is not meant to be an all-inclusive list EKG interpreted by me (3pts min.). @ -None done X-rays interpreted by me (1pt min.). @ -KUB demonstrates gas and fecal pattern without distention, no evidence of fecal impaction. CT interpreted by me (1pt min.). @ -CT of the abdomen and pelvis: Moderate stool burden without evidence of obstruction or impaction. No free air or abdominal abscess. U/S interpreted by me (1pt. min.). @ -None done What testing was considered but not performed or refused? (CT, X-rays, U/S, labs)? Why? @ -Laboratory studies considered but deferred due to stable vital signs and previous stable labs completed less than 30 days ago. What meds were considered but not given or refused? Why? @ -None Did you discuss the management of the patient with other professionals (professionals i.e. DrMoo, PA, BUSINESS DEVELOPMENT EXECUTIVE, lab, RT, psych nurse, high school social science teacher, department operations manager, teacher, executive vice president and chief operating officer, mattress spring encaser)? Give summary @ -No Was smoking cessation discussed for >3mins.? @ -No Was critical care preformed (if so, how long)? @ -No Were there social determinants of health that impacted care today? How? (Homelessness, low income, unemployed, alcoholism, drug addiction, t ransportation, low edu. Level, literacy, decrease access to med. care, [facility], rehab)? @ -No Was there de-escalation of care discussed even if they declined (Discuss DNR or withdrawal of care, Hospice)? DNR status @ -No What co-morbidities impacted this encounter? (DM, HTN, Smoking, COPD, CAD, Cancer, CVA, ARF, Chemo, Hep., AIDS, mental health diagnosis, sleep apnea, morbid obesity)? @ -Autism impairing ability of patient communication Was patient admitted / discharged? Hospital course, mention meds given and route, prescriptions, significant lab abnormalities, going to OR and other pertinent info. @ -33-year-old female presents to the emergency room with evidence of abdominal pain and constipation. Will obtain KUB to evaluate stool burden prior to proceeding with enema administration. No indication for laboratory studies or other medication administration at this time. KUB demonstrates no impaction or severe sore burden to account for abdominal pain and irritability. In the setting of recent cholecystectomy will proceed with CT of the abdomen and pelvis without contrast to further evaluate abdominal pain etiology. As previously stated recent laboratory studies revealed no abnormalities when having similar complaints post cholecystectomy no indication for further laboratory studies at this time. CT of the abdomen and pelvis: Moderate stool burden without evidence of obstruction or impaction. No free air or abdominal abscess. Findings discussed at length with mother. Discussed post cholecystectomy abdominal symptoms and need for dietary changes. Encouraged the avoidance of laxatives but continuation of stool softeners and or senna S regularly. Encouraged good hydration. Questions and concerns answered. Return parameters to the emergency room discussed. Will discharge home in stable condition with mother utilizing [id number] senna S for abdominal pain caused by constipation along with follow-up with primary care provider. Undiagnosed new problem with uncertain prognosis? @ -No Drug Therapy requiring intensive monitoring for toxicity (Heparin, Nitro, Insulin, Cardizem)? @ -No Were any procedures done? @ -No Diagnosis/symptom? @ -Abdominal pain Acute, or Chronic, or Acute on Chronic? @ -Acute Uncomplicated (without systemic symptoms) or Complicated (systemic symptoms)? @ -Uncomplicated Side effects of treatment? @ -No Exacerbation, Progression, or Severe Exacerbation? @ -No Poses a threat to life or bodily function? How? (Chest pain, [place], [place], pneumonia, PE, COPD, DKA, ARF, appy, cholecystitis, CVA, Diverticulitis, Homicidal, Suicidal, threat to staff... and all critical care pts) @ -No. Case discussed with Dr. Murray - Radiology Data Radiology results: report reviewed, image reviewed Disposition Clinical Impression: Abdominal pain Disposition: HOME SELF-CARE Condition: Stable Instructions (If sedation given, give patient instructions): Constipation (ED), Abdominal Pain (ED) Additional Instructions: Utilization of senna S at bedtime may help reduce GI pain symptoms. Low-fat diet encouraged. Avoid laxatives and enemas when possible. Please follow-up with your primary care provider. Please return to the Emergency Department if symptoms worsen or any other concerns. Is patient prescribed a controlled substance at d/c from ED?: No Referrals: Pj Marcos MD [Primary Care Provider] - 1-2 days Time of Disposition: 21:57
--- NOTE | 2023-03-25 20:32 | XR ---
EXAMINATION TYPE: XR KUB 2 views DATE OF EXAM: 03/25/2023 7:46 PM CLINICAL HISTORY: Pain and constipation TECHNIQUE: 2 supine views COMPARISON: None. FINDINGS: Scattered gas is seen in non-distended small bowel loops. Gas and fecal material is seen in non-distended colon. Colonic stool volume is within normal limits. There is no visceromegaly, pneumoperitoneum, or abnormal calcification appreciated. The lung bases are clear and the osseous structures are intact. Limitation of the study: Supine radiography cannot exclude pneumoperitoneum. IMPRESSION: No acute radiographic process.
--- NOTE | 2023-03-25 21:45 | CT ---
EXAMINATION TYPE: CT abdomen pelvis wo con DATE OF EXAM: 03/25/2023 HISTORY: abd pain, constipation. pt is nonverbal. best images CT DLP: 875.7 mGycm. Automated Exposure Control for Dose Reduction was Utilized. TECHNIQUE: CT scan of the abdomen and pelvis is performed without oral or IV contrast. COMPARISON: None. FINDINGS: LUNG BASES: No significant abnormality is appreciated. LIVER/GB: No significant abnormality is appreciated. PANCREAS: No significant abnormality is seen. SPLEEN: No significant abnormality is seen. ADRENALS: No significant abnormality is seen. KIDNEYS: No hydronephrosis or hydroureter. No renal or ureteral calcifications. No focal findings. BOWEL: No bowel obstruction. No dilated loops of bowel or inflammatory change. Colonic stool volume i s mildly excessive. PELVIC VISCERA: Unremarkable. LYMPH NODES: No greater than 1cm abdominal or pelvic lymph nodes are appreciated. OSSEOUS STRUCTURES: No significant abnormality is seen. Limitations of the study: Prominent patient motion artifact limits visualization throughout the scan. Use of IV contrast Limited CT sensitivity, particularly for focal visceral lesions, intraluminal fill ing defects, vascular pathology. IMPRESSION: No definite acute process.
[2023-03-25 22:15] VITALS: BP 149/87; PULSE 105; RESP 16
== END 2023-03-25 22:10 | disposition home or self-care (01) ==
LOC: EC 19:11
DX: R10.9 Unspecified abdominal pain (principal)
CPT/HCPCS: 74018; 74176; 99284

== ENCOUNTER 2023-12-18 19:39 | Emergency (ER) | payer BC, OTHER ==
[2023-12-18 19:45] VITALS: TEMP 97.2
[2023-12-18] MEDS ORDERED: SODIUM CHLORIDE 0.9% 1,000 ML IV STA (20:22)
[2023-12-18] MEDS ORDERED: LORazepam 2 MG/ML INJ IV STA (20:23)
--- NOTE | 2023-12-18 20:45 | ED ---
Altered Mental Status HPI - General Chief Complaint: Nausea/Vomiting/Diarrhea Stated Complaint: Female issues Time Seen by Provider: 12/18/23 19:49 Source: patient, RN notes reviewed, old records reviewed, Caregiver Mode of arrival: ambulatory Limitations: no limitations - History of Present Illness Initial Comments: This is a 33-year-old female with developmental delay coming in for rash. Patient is having difficulty with bowel movements per the mother and is holding her stool she is concerned for constipation versus urinary tract infection or other cause. Patient himself is unable to provide history secondary to clinical and mental state MD Complaint: altered mental status, confusion (Rash), other (Nausea vomiting di arrhea abdominal pain) -: days(s) Consistency of Symptoms: getting worse Context: history of similar presentation Associated Symptoms: foul smelling urine, diarrhea, incontinence Treatments Prior to Arrival: other pre-hospital medication (0) - Related Data Home Medications Medication Instructions Recorded Confirmed l-Norgest/E.estradiol-E.estrad 1 each PO QAM 09/23/20 03/01/23 [Seasonique 0.15-0.03-0.01 Tab] Previous Rx's Medication Instructions Recorded Ciprofloxacin [Cipro Susp] 500 mg PO BID #90 ml 12/18/23 Allergies Allergy/AdvReac Type Severity Reaction Status Date / Time No Known Allergies Allergy Verified 12/18/23 19:44 Review of Systems ROS Statement: Those systems with pertinent positive or pertinent negative responses have been documented in the HPI. ROS Other: All systems not noted in ROS Statement are negative. Past Medical History Past Medical History: GERD/Reflux Additional Past Medical History / Comment(s): COGNITIVELY IMPAIRED/NONVERBAL/AUTISM, gallbladder stones and severe thickening of gallbladd er wall/abdominal pain, constipation. History of Any Multi-Drug Resistant Organisms: None Reported Past Surgical History: Cholecystectomy Additional Past Surgical History / Comment(s): NUMEROUS DENTAL PROCEDURES WITH ANESTHESIA Past Anesthesia/Blood Transfusion Reactions: Postoperative Nausea & Vomiting (PONV) Additional Past Anesthesia/Blood Transfusion Reaction / Comment(s): PATIENT WAKES FEARFUL/TRIES TO GET OOB, COMBATIVE. Last surgery/pt woke and vomited. Pt has never had a blood transfusion. Past Psychological History: No Psychological Hx Reported Smoking Status: Never smoker Past Alcohol Use History: None Reported Past Drug Use History: None Reported - Past Family History Mother Family Medical History: No Reported History Father Family Medical History: Blood Disorder Additional Family Medical History / Comment(s): Hemophilia. General Exam Limitations: no limitations General appearance: alert, in no apparent distress Head exam: Present: atraumatic, normocephalic, normal inspection Eye exam: Present: normal appearance, PERRL, EOMI. Absent: scleral icterus, conjunctival injection, periorbital swelling ENT exam: Present: normal exam, mucous membranes moist Neck exam: Present: normal inspection. Absent: tenderness, meningismus, lymphadenopathy Respiratory exam: Present: normal lung sounds bilaterally. Absent: respiratory distress, wheezes, rales, rhonchi, stridor Cardiovascular Exam: Present: regular rate, normal rhythm, normal heart sounds. Absent: systolic murmur, diastolic murmur, rubs, gallop, clicks GI/Abdominal exam: Present: soft, normal bowel sounds. Absent: distended, tenderness, guarding, rebound, rigid Extremities exam: Present: normal inspection, full ROM, normal capillary refill. Absent: tenderness, pedal edema, joint swelling, calf tenderness Back exam: Present: normal inspection Neurological exam: Present: alert, oriented X3, CN II-XII intact Psychiatric exam: Present: normal affect, normal mood Skin exam: Present: warm, dry, intact, normal color. Absent: rash Course Vital Signs 12/18/23 12/18/23 19:40 22:40 Temperature 97.2 F L Pulse Rate 133 H 100 Respiratory 20 19 Rate Blood Pressure 141/95 132/88 O2 Sat by Pulse 96 100 Oximetry - Reevaluation(s) Reevaluation #1: 12/18/23 22:09 Medical records reviewed Reevaluation #2: 12/18/23 22:09 Patient symptoms improved Reevaluation #3: 12/18/23 22:10 Patient informed results questions answered Reevaluation #4: 12/18/23 22:09 Was pt. sent in by a medical professional or institution (, PA, [employer], urgent care, hospital, or fdc...) When possible be specific @ -no Did you speak to anyone other than the patient for history (EMS, parent, family, police, friend...)? What history was obtained from this source @ -no Did you review nursing and triage notes (agree or disagree)? Why? @ -agree Are old charts reviewed (outside hosp., previous admission, EMS record, old EKG, old radiological studies, urgent care reports/EKG's, fdc records)? Report findings @ -yes Differential Diagnosis (chest pain, altered mental status, abdominal pain women, abdominal pain men, vaginal bleeding, weakness, fever, dyspnea, syncope, headache, dizziness, GI bleed, back pain, seizure, CVA, palpatations, mental health, musculoskeletal)? @ -prior EKG interpreted by me (3pts min.). @ -yes X-rays interpreted by me (1pt min.). @ -yes CT interpreted by me (1pt min.). @ -Yes negative for acute disease U/S interpreted by me (1pt. min.). @ -no What testing was considered but not performed or refused? (CT, X-rays, U/S, labs)? Why? @ -none What meds were considered but not given or refused? Why? @ -none Did you discuss the management of the patient with other professionals (professionals i.e. , PA, [employer], lab, RT, psych nurse, social services manager, recycling manager, teacher, correction officer city or county jail, pillowcase turner)? Give summary @ -no Was smoking cessation discussed for >3mins.? @ -no Were there social determinants of health that impacted care today? How? (Homelessness, low income, unemployed, alcoholism, drug addiction, transportation, low edu. Level, literacy, decrease access to med. care, fci, rehab)? @ -none Was there de-escalation of care discussed even if they declined (Discuss DNR or withdrawal of care, Hospice)? DNR status @ -no What co-morbidities impacted this encounter? (DM, HTN, Smoking, COPD, CAD, Cancer, CVA, ARF, Chemo, Hep., AIDS, mental health diagnosis, sleep apnea, morbid obesity)? @ -none Was patient admitted / discharged? Hospital course, mention meds given and route, prescriptions, significant lab abnormalities, going to OR and other pertinent info. @ - 33 female to the ER for evaluation today. Patient presents today for evaluation of difficult to control stools with leg rash. Patient has no other acute findings here in the ER will be given treatment, patient can be discharged home Discharge Was critical care preformed (if so, how long)? @ -no Undiagnosed new problem with uncertain prognosis? @ -no Drug Therapy requiring intensive monitoring for toxicity (Heparin, Nitro, Insulin, Cardizem)? @ -no Were any procedures done? @ -no Diagnosis/symptom? @ -UTI, dehydration, leg rash Acute, or Chronic, or Acute on Chronic? @ -Acute Uncomplicated (without systemic symptoms) or Complicated (systemic symptoms)? @ -Complicated Side effects of treatment? @ -no Exacerbation, Progression, or Severe Exacerbation? @ -exacerbation Poses a threat to life or bodily function? How? (Chest pain, USA, MS, pneumonia, PE, COPD, DKA, ARF, appy, cholecystitis, CVA, Diverticulitis, Homicidal, Suicidal, threat to staff... and all critical care pts) @ -no Reevaluation #5: 12/18/23 22:09 Differential Abdominal Pain Women: Appendicitis, Cholecystitis, diverticulosis, ischemic bowel, pancreatitis, hepatitis, UTI, gastroenteritis, AAA, incarcerated hernia, bowel obstruction, constipation, inflammatory bowel, hepatitis, peptic ulcer disease, splenic infarction, perforated viscus, vulvitis, ovarian torsion, PID, kidney stone, placenta abruption, this is not meant to be an all-inclusive list Medical Decision Making - Medical Decision Making 33 female to the ER for evaluation today. Patient presents today for evaluation of difficult to control stools with leg rash. Patient has no other acute findings here in the ER will be given treatment, patient can be discharged home - Lab Data Result diagrams: 12/18/23 22:52 12/18/23 20:37 Lab Results 12/18/23 12/18/23 12/18/23 Range/Units 20:37 20:37 22:52 WBC 11.3 H (3.8-10.6) k/uL RBC 4.76 (3.80-5.40) m/uL Hgb 14.2 (11.4-16.0) gm/dL Hct 42.4 (34.0-46.0) % MCV 88.9 (80.0-100.0) fL MCH 29.8 (25.0-35.0) pg MCHC 33.5 (31.0-37.0) g/dL RDW 12.3 (11.5-15.5) % Plt Count 205 (150-450) k/uL MPV 9.9 Neutrophils % 68 % Lymphocytes % 23 % Monocytes % 5 % Eosinophils % 1 % Basophils % 1 % Neutrophils # 7.7 (1.3-7.7) k/uL Lymphocytes # 2.6 (1.0-4.8) k/uL Monocytes # 0.6 (0-1.0) k/uL Eosinophils # 0.1 (0-0.7) k/uL Basophils # 0.1 (0-0.2) k/uL Sodium 137 (137-145) mmol/L Potassium (3.5-5.1) mmol/L Chloride 106 (98-107) mmol/L Carbon Dioxide 21 L (22-30) mmol/L Anion Gap 10 mmol/L BUN 12 (7-17) mg/dL Creatinine 0.64 (0.52-1.04) mg/dL Est GFR (CKD-EPI)AfAm >90 (>60 ml/min/1.73 sqM) Est GFR (CKD-EPI)NonAf >90 (>60 ml/min/1.73 sqM) Glucose 105 H (74-99) mg/dL Calcium 9.4 (8.4-10.2) mg/dL Phosphorus 4.0 (2.5-4.5) mg/dL Magnesium 2.1 (1.6-2.3) mg/dL Total Bilirubin 2.4 H (0.2-1.3) mg/dL AST 172 H (14-36) U/L ALT 370 H (4-34) U/L Alkaline Phosphatase 59 (38-126) U/L Total Protein 9.2 H (6.3-8.2) g/dL Albumin 5.2 H (3.5-5.0) g/dL Amylase 53 (30-110) U/L Lipase 55 (23-300) U/L Urine Color Yellow Urine Appearance Turbid H (Clear) Urine RBC 22 H (0-5) /hpf Urine WBC >182 H (0-5) /hpf Urine WBC Clumps Many H (None) /hpf Ur Squamous Epith Cells 7 H (0-4) /hpf Urine Bacteria Many H (None) /hpf Hyaline Casts 57 H (0-2) /lpf Urine Mucus Many H (None) /hpf - Radiology Data Radiology results: report reviewed (CT of the abdomen pelvis is negative for acute disease), image reviewed Disposition Clinical Impression: Dehydration, UTI (urinary tract infection), Mental impairment Disposition: HOME SELF-CARE Condition: Good Instructions (If sedation given, give patient instructions): Urinary Tract Infection in Women (ED) Prescriptions: Ciprofloxacin [Cipro Susp] 500 mg PO BID #90 ml Is patient prescribed a controlled substance at d/c from ED?: No Referrals: Pj Marcos MD [Primary Care Provider] - 1-2 days Time of Disposition: 22:00
[2023-12-18 21:01] LABS: ALT 370 U/L (4-34); AST 172 U/L (14-36); African American GFR (CKD) >90 (>60 ml/min/1.73 sqM); Albumin 5.2 g/dL (3.5-5.0); Alkaline Phosphatase 59 U/L (38-126); Amylase 53 U/L (30-110); Anion Gap 10 mmol/L; Blood Urea Nitrogen 12 mg/dL (7-17); Calcium 9.4 mg/dL (8.4-10.2); Carbon Dioxide 21 mmol/L (22-30); Chloride 106 mmol/L (98-107); Glucose 105 mg/dL (74-99); Lipase 55 U/L (23-300); Magnesium 2.1 mg/dL (1.6-2.3); Non-African American GFR(CKD) >90 (>60 ml/min/1.73 sqM); Sodium 137 mmol/L (137-145); Total Bilirubin 2.4 mg/dL (0.2-1.3); Total Protein 9.2 g/dL (6.3-8.2)
--- NOTE | 2023-12-18 21:10 | CT ---
EXAMINATION TYPE: CT abdomen pelvis w con DATE OF EXAM: 12/18/2023 COMPARISON: 03/25/2023 HISTORY: pelvic pain CT DLP: 1284.1 mGycm CONTRAST: CT scan of the abdomen and pelvis is performed without Oral Contrast and with IV Contrast, patient in jected with 100 mL of Isovue 300. FINDINGS: Limitations of the study: Prominent patient motion artifact limits visualization throughout the scan. LUNG BASES-: No visible nodule. No infiltrate. LIVER/GB: The gallbladder is surgically absent. No space occupying hepatic lesion. Biliary tree is of normal caliber. PANCREAS: No inflammation. No distinct mass. SPLEEN: No splenic enlargement. No lesion seen. ADRENALS: No nodule. No thickening. KIDNEYS/BLADDER: No hydronephrosis. No nephrolithiasis. No distinct renal mass. Urinary bladder g rossly unremarkable. BOWEL: Nonvisualization of the appendix. Correlate clinically. No inflammatory process within the rig ht lower quadrant. Normal bowel caliber. No inflammation. GENITAL ORGANS: No gross abnormality. LYMPH NODES: No greater than 1cm abdominal or pelvic lymph nodes are appreciated. AORTA: No significant abnormality. OSSEOUS STRUCTURES: No significant abnormality is seen. OTHER: No significant additional abnormality is seen. IMPRESSION: 1. Limited study although no acute process is seen with certainty.
[2023-12-18 21:35] LABS: Bacteria,Urine Many /hpf; Hyaline Casts,Urine 57 /lpf (0-2); Mucus,Urine Many /hpf; RBC,Urine 22 /hpf (0-5); Squamous Epithelial Cell,Urine 7 /hpf (0-4); WBC,Urine >182 /hpf (0-5)
[2023-12-18 21:38] LABS: Color,Urine Yellow
[2023-12-18 21:39] LABS: Appearance,Urine Turbid (Clear)
[2023-12-18] MEDS ORDERED: CIPROFLOXACIN PO ONE (22:04)
[2023-12-18] MEDS ORDERED: LEVOFLOXACIN 500MG-D5W PMX 500 MG in DEXTROSE/WATER 1 100ML.BAG IVPB STA (22:05)
[2023-12-18] MEDS ORDERED: diphenhydrAMINE 50 MG/ML 1 ML VIAL IVP STA (22:05)
[2023-12-18] MEDS ORDERED: MUPIROCIN 2% OINT 22 GM TUBE TOPICAL ONE (22:15)
[2023-12-18 22:49] VITALS: BP 132/88; PULSE 100; RESP 19
[2023-12-18 22:56] LABS: Basophils # (A) 0.1 k/uL (0-0.2); Basophils % (A) 1 %; Eosinophils # (A) 0.1 k/uL (0-0.7); Eosinophils % (A) 1 %; HCT 42.4 % (34.0-46.0); HGB 14.2 gm/dL (11.4-16.0); Lymphocytes # (A) 2.6 k/uL (1.0-4.8); Lymphocytes % (A) 23 %; MCH 29.8 pg (25.0-35.0); MCHC 33.5 g/dL (31.0-37.0); MCV 88.9 fL (80.0-100.0); Mean Platelet Volume 9.9; Monocytes # (A) 0.6 k/uL (0-1.0); Monocytes % (A) 5 %; Neutrophils # (A) 7.7 k/uL (1.3-7.7); Neutrophils % (A) 68 %; Platelet Count 205 k/uL (150-450); RBC 4.76 m/uL (3.80-5.40); RDW 12.3 % (11.5-15.5); WBC 11.3 k/uL (3.8-10.6)
== END 2023-12-18 23:36 | disposition home or self-care (01) ==
LOC: EC 19:39
DX: E86.0 Dehydration (principal); N39.0 Urinary tract infection, site not specified; F99 Mental disorder, not otherwise specified; R21 Rash and other nonspecific skin eruption; Z90.49 Acquired absence of other specified parts of digestive tract
CPT/HCPCS: 99284 ×2; 96365 ×2; 96375 ×3; 96361 ×2; 36415; 80053; 82150; 83690; 83735; 84100; 85025; 81001; 74177; J2060; J1200; J1956; Q9967

== ENCOUNTER 2024-01-18 06:20 | Day surgery (SDC) | payer BC, OTHER ==
[~2024-01-18 06:20] MED LIST changes: -ACETAMINOPHEN TAB 500 MG TAB PO PRN; -HEPARIN SODIUM,PORCINE/PF 5,000 UNIT/0.5 ML SYRINGE SQ PRN; +LIDOCAINE 1% (10MG/ML) FOR IV START INTRADERMA PRN; +droPERidol 5 MG/2 ML VIAL IVP ONE
[2024-01-18] MEDS ORDERED: HYDROmorphone 0.5 MG/0.5 ML SYRINGE IVP PRN (07:00)
[2024-01-18] MEDS: LACTATED RINGERS 1,000 ML IV SCH (07:20)
[2024-01-18] MEDS: DEXAMETHASONE SOD PHOSPHATE 4 MG/ML 1 ML VIAL IV ONE (07:25)
[2024-01-18] MEDS: ONDANSETRON 4 MG/2 ML VIAL IVP ONE (07:27)
[2024-01-18] MEDS ORDERED: LIDOCAINE 1% INJ 10MG/ML (20 ML MDV) ONE (07:41)
[2024-01-18] MEDS ORDERED: PROPOFOL 10 MG/ML 20 ML VIAL IV ONE (07:41)
[2024-01-18] MEDS ORDERED: fentaNYL (PF) 50 MCG/ML 2 ML AMP ONE (07:41)
[2024-01-18] MEDS ORDERED: MIDAZOLAM 2 MG/2 ML VIAL ONE (07:41)
[2024-01-18] MEDS ORDERED: SUCCINYLCHOLINE CHLORIDE 200 MG/10 ML VIAL IV ONE (07:41)
[2024-01-18] MEDS ORDERED: ACETAMINOPHEN IV (For NPO) 1,000 MG/100 ML VIAL ONE (07:41)
[2024-01-18] MEDS ORDERED: KETOROLAC 15 MG/ML 1 ML VIAL ONE (07:41)
[2024-01-18] MEDS: LIDOCAINE 2%-EPI 1:100,000 20 ML VIAL SQ ONE ×2 (07:58)
[2024-01-18] MEDS: GELATIN SPONGE,ABSORB (SMALL) 1 EACH SPONGE TOPICAL ONE (07:58)
[2024-01-18] MEDS: metroNIDAZOLE-NS PMX 500 MG in SALINE 1 100ML.BAG IVPB PRN (08:00)
[2024-01-18 09:14] VITALS: TEMP 98.5
[2024-01-18 09:15] VITALS: BP 131/79; PULSE 80; RESP 16
--- NOTE | 2024-01-18 20:01 | OP ---
OPERATIVE REPORT DATE OF SERVICE : 01/18/2024 PREOPERATIVE DIAGNOSES: 1. Abscessed tooth #19. 2. Carious lesions, teeth #19, #20 and #21. 3. Nonrestorable teeth. POSTOPERATIVE DIAGNOSES: 1. Abscessed tooth #19. 2. Carious lesions, teeth #19, #20 and #21. 3. Nonrestorable teeth. PROCEDURE PERFORMED: Surgical extraction of teeth #19, #20 and #21. ANESTHESIA: General via oral endotracheal intubation. ESTIMATED BLOOD LOSS: 1 mL. DRAINS: None. COMPLICATIONS: None. SPECIMENS: None. INDICATIONS FOR PROCEDURE: The patient is a 33-year-old female, who was referred by her general dentist for the extraction of teeth #19, #20 and #21. The patient is still developmentally delayed and does not follow instructions and is uncooperative. She will now undergo removal of teeth #19, #20 and #21 in the OR setting. The risks, benefits, alternatives of the procedure were reviewed with the mother at length and all of her questions were answered to her satisfaction. DESCRIPTION OF PROCEDURE: The patient was taken to the operating room, placed on the operating table in the supine position. Next, she was induced via the IV and she was intubated orally. Once the tube was secured, a general plane of anesthesia was maintained throughout the operative course. The surgeon approached the operative field and a throat pack was placed notifying both Nursing and Anesthesia. Attention was then directed to the lower left quadrant, where 2 mL of 2% lidocaine with 1:100,000 parts of epinephrine was infiltrated into the appropriate areas. Next, a 15 blade was utilized to develop a buccal envelope flap. Teeth #19, #20 and #21 were removed utilizing an elevator and forceps technique with the assistance of bone removal. The wound was irrigated thoroughly and the flap was reapproximated with 3-0 chromic gut. Hemostasis was observed. The throat pack was removed notifying both Nursing and Anesthesia. The patient tolerated the procedure well without complications. She was then transferred to the postanesthetic care unit, breathing spontaneously and hemodynamically stable. MMODL / IJN: [id number] /
== END 2024-01-18 09:53 | disposition home or self-care (01) ==
LOC: OR 06:20
PROVIDERS: ATTEND Dentist Oral and Maxillofacial Surgery
DX: K02.9 Dental caries, unspecified (principal)
CPT/HCPCS: 81025; 84703; 41899; J2250; J0330; J1100; J0690; J2405; J2001; J3010; J0131; J1885; J2704; J1836